=== PATIENT | male | born 2000 | race Caucasian/White ===

== ENCOUNTER 2020-02-18 15:36 | Emergency (ER) | payer SELFPAY ==
[2020-02-18] MEDS ORDERED: Diphtheria,Pertussis(Acell),Tetanus Vaccine 0.5 ML Syringe IM ONE (16:52)
--- NOTE | 2020-02-18 16:55 | EDM.PDOC ---
ED HPI GENERAL MEDICAL PROBLEM - General Chief Complaint: Upper Extremity Injury/Pain Stated Complaint: LT INDEX FINGER INJURY Time Seen by Provider: 02/18/20 16:40 Source of Information: Reports: Patient History Limitations: Reports: No Limitations - History of Present Illness INITIAL COMMENTS - FREE TEXT/NARRATIVE: Patient is a 19-year-old male who presents to the ED complaining of pain to the left index finger distal phalanx after hitting it with a hammer. States there was a skin flap present that he pushed back and has now developed a blood blister on the palmar side. No bone or tendons exposed. He is able to flex and extend at all joints. No sensation changes. Pain mild wax and wanes in intensity. Denies any pain adjacent fingers, redness, sensation changes, any additional complaints. Tetanus status unknown. Left Finger-Index Pain Score (Numeric/FACES): 3 - Related Data Allergies Allergy/AdvReac Type Severity Reaction Status Date / Time No Known Allergies Allergy Verified 02/18/20 16:11 Home Meds: Home Meds . [No Known Home Meds] 02/18/20 [History] Past Medical History - Past Health History Medical/Surgical History: Denies Medical/Surgical History Social & Family History - Tobacco Use Smoking Status *Q: Current Every Day Smoker Years of Tobacco use: 4 Packs/Tins Daily: 1 - Caffeine Use Caffeine Use: Reports: Coffee, Energy Drinks, Soda, Tea - Recreational Drug Use Recreational Drug Use: No Review of Systems - Review of Systems Review Of Systems: Comprehensive ROS is negative, except as noted in HPI. ED EXAM, GENERAL - Physical Exam Exam: See Below Exam Limited By: No Limitations General Appearance: Alert, WD/WN, No Apparent Distress Ears: Hearing Grossly Normal Nose: Normal Inspection Throat/Mouth: Normal Voice, No Airway Compromise Respiratory/Chest: No Respiratory Distress, No Accessory Muscle Use Cardiovascular: Normal Peripheral Pulses, Regular Rate, Rhythm Peripheral Pulses: 2+: Radial (L) Extremities: Other (Left index finger: small superfical laceration to the lateral aspect of the nail bed to palmar aspect with small blood blisterpresent. Nail bed intact. Able to flex extend at all joints. Minimal swelling. No sensation changes. No pain to the adjacent fingers or hand. ) Neurological: Alert, Oriented, CN II-XII Intact, Normal Cognition, No Motor/Sensory Deficits Psychiatric: Normal Affect, Normal Mood Skin Exam: Warm, Dry Course - Vital Signs Last Recorded V/S: Last Vital Signs Temp 97.8 F 02/18/20 16:03 Pulse 81 02/18/20 16:03 Resp 18 02/18/20 16:03 BP 135/79 02/18/20 16:03 Pulse Ox 99 02/18/20 16:03 - Orders/Labs/Meds Orders: Active Orders 24 hr Category Date Time Status Vaccines to be Administered [RC] PER UNIT ROUTINE Care 02/18/20 16:52 Active Fingers Second Digit Lt F1 [CR] Stat Exams 02/18/20 16:26 Taken Meds: Medications Discontinued Medications Generic Name Dose Route Start Last Admin Trade Name Freq PRN Reason Stop Dose Admin Diphtheria/Tetanus/Acell Pertussis 0.5 ml 02/18/20 16:52 Adacel IM 02/18/20 16:53 .ONCE ONE - Re-Assessments/Exams Free Text/Narrative Re-Assessment/Exam: Xray of the left index finger will be obtained. I suspect the soft tissue only. Tdap status is unknown. Update to be obtained here in the ED. 02/18/20 17:12 Initial interpretation by me of the left finger x-ray revealed no acute bony abnormalities. I will discharge patient home with a splint in place. Instructions as document. Departure - Departure Time of Disposition: 17:13 Disposition: Home, Self-Care 01 Preliminary Cause of *Q: Cardiac Arrest Condition: Good Clinical Impression: Superficial laceration Fingertip contusion Qualifiers: Encounter type: initial encounter Qualified Code(s): S60.00XA - Contusion of unspecified finger without damage to nail, initial encounter - Discharge Information Instructions: Contusion, [id number] Referrals: PCP,None [Primary Care Provider] - Forms: ED Department Discharge, ED Return to Work/School Form Additional Instructions: Cleanse site twice daily with soap and water and pat dry. Apply triple antibiotic ointment to the affected site. Splint has been applied. May utilize splint until wound is healed and pain has dissipated. May utilize ibuprofen and Tylenol in alternating fashion. Return to the ED if you develop any increased redness, swelling, or purulent drainage. Sepsis Event Note (ED) - Evaluation Sepsis Screening Result: No Definite Risk - Focused Exam Vital Signs: Vital Signs Temp Pulse Resp BP Pulse Ox 02/18/20 16:03 97.8 F 81 18 135/79 99 - My Orders Last 24 Hours: My Active Orders 02/18/20 16:26 Fingers Second Digit Lt F1 [CR] Stat 02/18/20 16:52 Vaccines to be Administered [RC] PER UNIT ROUTINE - Assessment/Plan Last 24 Hours: My Active Orders 02/18/20 16:26 Fingers Second Digit Lt F1 [CR] Stat 02/18/20 16:52 Vaccines to be Administered [RC] PER UNIT ROUTINE
--- NOTE | 2020-03-23 12:18 | CR ---
PROCEDURE INFORMATION: Exam: XR Left Finger(s) Exam date and time: 02/18/2020 4:52 PM Age: 19 years old Clinical indication: Injury or trauma; Other: Hammer to left index fingertip; Work related; Blunt trauma (contusions or hematomas) TECHNIQUE: Imaging protocol: XR Left fingers. Views: Minimum 2 views. COMPARISON: No relevant prior studies available. FINDINGS: Bones/joints: The multiple views of the left 2nd/index finger demonstrate no evidence for fracture. Soft tissues: Soft tissue swelling is noted in the distal finger. No foreign body identified. IMPRESSION: Soft tissue injury without underlying fracture or foreign body. Thank you for allowing us to participate in the care of your patient. Dictated and Authenticated by: Jesus Stroud MD 03/23/2020 12:22 PM Central Time ([place] & [place]) [facility]
== END 2020-02-18 17:30 | disposition home or self-care (01) ==
LOC: JD.ED 15:36
DX: S61.311A Laceration without foreign body of left index finger with damage to nail, initial encounter (principal); Z23 Encounter for immunization; F17.210 Nicotine dependence, cigarettes, uncomplicated; W22.8XXA Striking against or struck by other objects, initial encounter
CPT/HCPCS: 73140-26-F1; 73140-F1; 90471; 90715; 99282; 99283-25